=== PATIENT | male | born 1960 | race Caucasian/White ===

== ENCOUNTER → 2024-05-11 | Emergency (ER) | payer MEDICARE, MEDICAID ==
[~2024-05-11] VITALS: Ht 185.4 cm; Wt 81.4 kg
[~2024-05-11] MED LIST: BENZ-247 PO; HALO5TAB23 PO; TRAZ-186 PO
[2024-05-11 08:38] VITALS: BP 141/82; PULSE 64; RESP 16; TEMP 97.8; O2SAT 99
== END | disposition home or self-care (01) ==
LOC: EMS 08:36
DX: S01.111A Laceration without foreign body of right eyelid and periocular area, initial encounter (principal); E11.9 Type 2 diabetes mellitus without complications; F25.9 Schizoaffective disorder, unspecified; Z79.899 Other long term (current) drug therapy; W19.XXXA Unspecified fall, initial encounter; Y93.89 Activity, other specified; Y92.89 Other specified places as the place of occurrence of the external cause; Y99.8 Other external cause status
CPT/HCPCS: 99283; Z7502